=== PATIENT | male | born 1975 | race Caucasian/White ===

== ENCOUNTER 2016-09-23 17:30 | Emergency (ER) | payer OTHER ==
[~2016-09-23] VITALS: Ht 180.3 cm; Wt 119.5 kg
[~2016-09-23 17:30] MED LIST: CYCL1TAB29 PO; FLUT1SPR20 EACH NARE; LOVA40TA PO; MEDR4PAK PO; NAPR500T PO; TEST200I12 IM
[2016-09-23 17:34] VITALS: BP 139/85; PULSE 81; RESP 16; TEMP 98.4; O2SAT 99
--- NOTE | 2016-09-23 17:48 | PD ---
HPI Chief Complaint: Musculoskeletal Complaint Time Seen by Provider: 17:46 Travel History International Travel<30 days: No Contact w/Intl Traveler<30days: No Traveled to known affect area: No History of Present Illness HPI Patient comes in complaining of right distal forearm pain radial aspect ongoing for approximately 4-5 days. Patient states he's been applying ice to it. Denies any known trauma. Pain is worse with palpation certain movement. Denies any numbness or tingling. Denies any fevers. PFSH Past Medical History Cancer: No Cardiovascular Problems: No Diabetes: No Diminished Hearing: No Endocrine: No Genitourinary: No Immune Disorder: No Musculoskeletal: Yes Neurologic: No Psychiatric: No Reproductive: No Respiratory: Yes Immunizations Current: No PNEUMOCCOCAL Vaccine (Year): 3 Past Surgical History Other Surgery: Yes (INFECTED TOOTH, SEPTIC) Social History Alcohol Use: Yes (SOCIALLY) Tobacco Use: Yes (OCC CIGAR) Substance Use: No Allergies-Medications (Allergen,Severity, Reaction): Coded Allergies: Penicillin (Verified Allergy, Mild, Hives, 09/23/16) Reported Meds & Prescriptions Reported Meds & Active Scripts Active Mobic (Meloxicam) 7.5 Mg Tab 7.5 Mg PO DAILY 7 Days Reported Flexeril (Cyclobenzaprine HCl) 10 Mg Tab 10 Mg PO TID Review of Systems Except as stated in HPI: all other systems reviewed are Neg Physical Exam Narrative GENERAL: Well-developed, overly nourished, in no acute distress, and non-ill appearing. SKIN: Focused skin assessment warm and dry. HEAD: Atraumatic. Normocephalic. EYES: Pupils equal and round. EOMI. No scleral icterus. No injection or drainage. ENT: No nasal bleeding or discharge. Mucous membranes pink and moist. NECK: Trachea midline. Supple. No nuclear rigidity. CARDIOVASCULAR: Radial pulses 2+, intact, and equal bilaterally. Capillary refill less than 2 seconds. RESPIRATORY: No accessory muscle use. No respiratory distress. MUSCULOSKELETAL: No obvious deformities. No clubbing. No cyanosis. No edema. Full range of motion. Wrist: FROM and equal BL with passive flexion, extension, and pronation/supination. Capillary refill less than 2 seconds distal to injury and equal BL. FROM distal to injury and equal BL. Strength distal to injury equal BL. NV intact distal to injury. Flexion and extension of thumb equal BL. Equal strength and movement with abduction/adductions of BL fingers. Sole Leveler strength equal BL. No tenderness to the anatomical snuffbox. She reports tenderness over the radial aspect distal right forearm. There is no crepitus, fluctuation, induration, or erythematous. NEUROLOGICAL: Awake and alert. No obvious cranial nerve deficits. Motor grossly within normal limits. Normal speech. PSYCHIATRIC: Appropriate mood and affect; insight and judgment normal. Data Data Last Documented VS Vital Signs Date Time Temp Pulse Resp B/P Pulse Ox O2 Delivery O2 Flow Rate FiO2 09/23/16 17:34 98.4 81 16 139/85 99 Orders Forearm (2vws) (09/23/16 ) Ice/Cold Pack (09/23/16 17:46) Splint Or Brace Apply/Monitor (09/23/16 18:36) MDM Medical Decision Making Medical Screen Exam Complete: Yes Emergency Medical Condition: Yes Differential Diagnosis Fracture, strain, contusion, other Narrative Course There is no clinical evidence for fracture. There is no clinical evidence to suspect bony injury by exam. Radiographic examination revealed no fracture seen at this time. No obvious ligamental injury or internal derangement is noted at this time. The distal extremity appears neurovascularly intact, without evidence of neurovascular injury nor compartment syndrome. Tendon exam also was intact. The effected limb was splinted. The patient was discharged on pain medication along and given warnings for vascular compromise. The patient is to follow up with primary care provider and/or Orthopedics. The patient agrees with plan. Patient in no obvious distress upon re-evaluation. All pertinent Radiology result(s) discussed with patient. Patient was asked if they wanted to speak to my attending, which the patient did not wish to do at this time. Any questions/ concerns in reference to patient diagnosis/condition discussed and clarified prior to patient's discharge. Reinforced sheer importance of close follow up with patient's primary physician or primary care clinic and orthopedics. Instructed patient to return to ED immediately, if symptoms return/worsen. Pt showed understanding of above instructions. Further instructions and recommendations were detailed in discharge paperwork. Pt ambulated without difficulty out of ED at discharge. Diagnosis Primary Impression: Right forearm pain Referrals: Orthopedist Primary Care Physician Patient Instructions: General Instructions Additional Instructions: Follow-up with your primary care physician and/or the 3-5 days for reevaluation. Take all medication as prescribed. Apply ice to affected areas 20 minutes per hour as needed for pain. Wear carolyn wrap as needed for comfort. Return to the emergency department if symptoms get worse. Med/Other Pt SpecificInfo: Prescription(s) given Scripts Meloxicam (Mobic)7.5 Mg Tab7.5 Mg PO DAILY 7 Days Ref 0 Prov:Anil Samaniego MD 09/23/16 Disposition: 01 DISCHARGE HOME Condition: Stable Lukasz Ortega Sep 23, 2016 17:48
--- NOTE | 2016-09-23 18:49 | RADHPO ---
EXAM DATE/TIME: 09/23/2016 17:50 [facility] COMPARISON: No previous studies available for comparison. INDICATIONS : Right distal forearm pain with swelling. No kown injury. MEDICAL HISTORY : None. SURGICAL HISTORY : None. ENCOUNTER: Initial ACUITY: 4 - 6 days PAIN SCORE: 5/10 LOCATION: Right upper extremity FINDINGS: Two view examination of the right forearm demonstrates no evidence of fracture or dislocation. Bony mineralization is normal. The soft tissue structures are intact. CONCLUSION: Unremarkable examination of the right forearm. Sebastián Barrios MD on September 23, 2016 at 18:38 Board Certified Radiologist. This report was verified electronically.
[2016-09-23] MEDS ORDERED: MOBI7.5T PO (18:55)
[2016-11-07] MEDS ORDERED: ZITHTAB PO (10:43)
[2016-11-07] MEDS ORDERED: BENZ100 PO (10:44)
== END 2016-09-23 19:05 | disposition home or self-care (01) ==
LOC: PHEFT 17:30
DX: M79.631 Pain in right forearm (principal)
CPT/HCPCS: 73090; 99283